=== PATIENT | female | born 1940 | race Caucasian/White ===

== ENCOUNTER 2016-11-10 12:25 | Emergency (ER) | payer MEDICARE, OTHER ==
[~2016-11-10] VITALS: Ht 165.1 cm; Wt 78.0 kg
[2016-11-10 12:25] VITALS: BP 103/56; PULSE 60; RESP 18; TEMP 98; O2SAT 95
[~2016-11-10 12:25] MED LIST: AMLO10 PO; ATOR20TA PO; CITA-48 PO; DONE5TAB14 PO; GABA100C4 PO; KEPP500T3 PO; MEMA28CA PO; TEMA15 PO
[2016-11-10] MEDS ORDERED: SODIUM CHLOR 0.9% 1000 ML INJ 1,000 ML IV ONE (12:45)
--- NOTE | 2016-11-10 12:49 | PD ---
HPI Chief Complaint: Syncope/Near-Syncope Time Seen by Provider: 12:32 Travel History International Travel<30 days: No Contact w/Intl Traveler<30days: No Traveled to known affect area: No History of Present Illness HPI 76-year-old female apparently had a syncopal episode today. sHe was reportedly sitting outside in the sun. She says she gets sweaty and felt hot. She was thirsty. She apparently had a syncopal episode which she is not entirely recall. Paramedics report that by the time they arrived at the scene that she was fully awake. Patient has a history of stroke and also of intracerebral hemorrhage. She denies cardiac history though her memory does not appear very reliable. She denies any chest pain or palpitations. She does have a history of seizures but she does not think she had a seizure today PFSH Past Medical History Arthritis: Yes Blood Disorders: Yes (blood clots) Cardiovascular Problems: No Cerebrovascular Accident: Yes Diminished Hearing: No Genitourinary: No Musculoskeletal: Yes Neurologic: Yes (hemorrhagic stroke 08/15) Reproductive: No Respiratory: Yes Myocardial Infarction: Yes PNEUMOCCOCAL Vaccine (Year): 2005 Menopausal: Yes Tubal Ligation: Yes Past Surgical History Appendectomy: Yes Cardiac Surgery: No Cholecystectomy: Yes Ear Surgery: No Eye Surgery: No Genitourinary Surgery: No Oral Surgery: No Thoracic Surgery: Yes Other Surgery: Yes Social History Alcohol Use: Yes (OCC) Tobacco Use: No Substance Use: No Allergies-Medications (Allergen,Severity, Reaction): Coded Allergies: No Known Allergies (Verified , 11/10/16) Reported Meds & Prescriptions Reported Meds & Active Scripts Active Reported Vitamin D-3 (Cholecalciferol) 1,000 Unit Cap 1 Cap PO DAILY Temazepam 30 Mg Cap 30 Mg PO HS PRN Namenda Xr (Memantine) 28 Mg Caper 28 Mg PO HS Lisinopril 20 Mg Tab 20 Mg PO DAILY Escitalopram (Escitalopram Oxalate) 10 Mg Tab 10 Mg PO DAILY Dilantin (Phenytoin Extended) 100 Mg Cap 300 Mg PO HS Review of Systems General / Constitutional: No: Fever, Chills Eyes: No: Diploplia HENT: No: Headaches Cardiovascular: Positive: Syncope, No: Chest Pain or Discomfort, Palpitations Respiratory: No: Cough, Shortness of Breath Gastrointestinal: No: Vomiting, Diarrhea Genitourinary: No: Urgency, Frequency Musculoskeletal: No: Myalgias, Arthralgias Skin: No Rash, No Itching Neurologic: No: Change in Mentation Psychiatric: No: Anxiety, Depression Hematologic/Lymphatic: No: Easy Bruising Physical Exam Narrative GENERAL: Well-developed female SKIN: Focused skin assessment warm/dry. HEAD: Atraumatic. Normocephalic. EYES: Pupils equal and round. No scleral icterus. No injection or drainage. ENT: No nasal bleeding or discharge. Mucous membranes pink and moist. NECK: Trachea midline. No JVD. CARDIOVASCULAR: Regular rate and rhythm. No murmur appreciated. RESPIRATORY: No accessory muscle use. Clear to auscultation. Breath sounds equal bilaterally. GASTROINTESTINAL: Abdomen soft, non-tender, nondistended. Hepatic and splenic margins not palpable. MUSCULOSKELETAL: No obvious deformities. No clubbing. No cyanosis. No edema. NEUROLOGICAL: Awake and alert. No obvious cranial nerve deficits. Motor grossly within normal limits. Patient appears to have some mild aphasia. She has some trouble finding certain words PSYCHIATRIC: Appropriate mood and affect; insight and judgment normal. Data Data Last Documented VS Vital Signs Date Time Temp Pulse Resp B/P Pulse Ox O2 Delivery O2 Flow Rate FiO2 11/10/16 12:50 65 18 107/56 96 Room Air 11/10/16 12:25 98.0 Orders Electrocardiogram (11/10/16 12:44) Complete Blood Count With Diff (11/10/16 12:44) Basic Metabolic Panel (Bmp) (11/10/16 12:44) Troponin I (11/10/16 12:44) Magnesium (Mg) (11/10/16 12:44) Ct Brain W/O Iv Contrast(Rout) (11/10/16 12:44) Sodium Chlor 0.9% 1000 Ml Inj (Ns 1000 M (11/10/16 12:45) Labs Laboratory Tests Test 11/10/16 13:00 White Blood Count 9.4 TH/MM3 Red Blood Count 4.26 MIL/MM3 Hemoglobin 13.7 GM/DL Hematocrit 39.5 % Mean Corpuscular Volume 92.8 FL Mean Corpuscular Hemoglobin 32.2 PG Mean Corpuscular Hemoglobin 34.7 % Concent Red Cell Distribution Width 12.2 % Platelet Count 186 TH/MM3 Mean Platelet Volume 8.6 FL Neutrophils (%) (Auto) 70.2 % Lymphocytes (%) (Auto) 19.4 % Monocytes (%) (Auto) 7.2 % Eosinophils (%) (Auto) 2.0 % Basophils (%) (Auto) 1.2 % Neutrophils # (Auto) 6.6 TH/MM3 Lymphocytes # (Auto) 1.8 TH/MM3 Monocytes # (Auto) 0.7 TH/MM3 Eosinophils # (Auto) 0.2 TH/MM3 Basophils # (Auto) 0.1 TH/MM3 CBC Comment DIFF FINAL Differential Comment Sodium Level 138 MEQ/L Potassium Level 3.9 MEQ/L Chloride Level 107 MEQ/L Carbon Dioxide Level 23.3 MEQ/L Anion Gap 8 MEQ/L Blood Urea Nitrogen 12 MG/DL Creatinine 0.55 MG/DL Estimat Glomerular Filtration 107 ML/MIN Rate Random Glucose 98 MG/DL Calcium Level 7.8 MG/DL Magnesium Level 2.0 MG/DL Troponin I 0.04 NG/ML [facility] Medical Decision Making Medical Screen Exam Complete: Yes Emergency Medical Condition: Yes Medical Record Reviewed: Yes Differential Diagnosis Differential includes dysrhythmia, dehydration, CVA Narrative Course EKG shows inverted T waves across the anterior leads. These abnormalities were present on her most recent EKG. A CT scan was done and is similar to previous CT scans. Lab work is unremarkable. Patient has been given some IV fluids. She says she feels well. I believe she had syncope due to being overheated some mild dehydration. She does not think she had a seizure. She is stable for discharge. Diagnosis Primary Impression: Syncope Qualified Code: T67.1XXA - Heat syncope, initial encounter Disposition: DISCHARGE HOME Condition: Stable Rizwan Negrete MD Nov 10, 2016 12:49
[2016-11-10 12:50] VITALS: BP 107/56; PULSE 65; RESP 18; O2SAT 96
[2016-11-10 13:16] LABS: AUTOMATED NEUTROPHIL # 6.6 TH/MM3 (1.8-7.7); BASOPHIL # 0.1 TH/MM3 (0-0.2); BASOPHIL % 1.2 % (0.0-2.0); EOSINOPHIL # 0.2 TH/MM3 (0-0.4); HEMATOCRIT 39.5 % (35.0-46.0); HEMO FLAGS DIFF FINAL; LYMPH % 19.4 % (9.0-44.0); LYMPHOCYTE # 1.8 TH/MM3 (1.0-4.8); MEAN CELL VOLUME 92.8 FL (80.0-100.0); MEAN CORPUSCULAR HEMOGLOBIN 32.2 PG (27.0-34.0); MEAN CORPUSCULAR HGB CONC 34.7 % (32.0-36.0); MONO % 7.2 % (0.0-8.0); NEUT % 70.2 % (16.0-70.0); PLATELET COUNT 186 TH/MM3 (150-450); RED BLOOD COUNT 4.26 MIL/MM3 (4.00-5.30); RED CELL DISTRIBUTION WIDTH 12.2 % (11.6-17.2); WHITE BLOOD COUNT 9.4 TH/MM3 (4.0-11.0)
[2016-11-10 13:25] LABS: POTASSIUM 3.9 MEQ/L (3.5-5.1)
[2016-11-10 13:29] LABS: BICARBONATE 23.3 MEQ/L (21.0-32.0)
[2016-11-10] MEDS ORDERED: LISI-515 PO (13:34)
[2016-11-10] MEDS ORDERED: DILA100C PO (13:34)
[2016-11-10] MEDS ORDERED: MEMA28CA PO (13:34)
[2016-11-10] MEDS ORDERED: CHOL1CAP6 PO (13:34)
[2016-11-10] MEDS ORDERED: TEMA30CA PO (13:34)
[2016-11-10] MEDS ORDERED: ESCI10TA PO (13:34)
--- NOTE | 2016-11-10 13:42 | RADRPT ---
EXAM DATE/TIME: 11/10/2016 13:10 [place] COMPARISON: CT BRAIN W/O CONTRAST, October 09, 2014, 11:27. INDICATIONS : Syncopal episode. RADIATION DOSE: 60.66 CTDIvol (mGy) MEDICAL HISTORY : Cardiovascular disease. Cerebrovascular disease. Intracerebral hemorrhage. SURGICAL HISTORY : Cholecystectomy. Appendectomy.Tubal ligation. ENCOUNTER: Initial ACUITY: 1 day PAIN SCALE: 0/10 LOCATION: cranial TECHNIQUE: Multiple contiguous axial images were obtained of the head. Using automated exposure control and adj ustment of the mA and/or kV according to patient size, radiation dose was kept as low as reasonably a chievable to obtain optimal diagnostic quality images. DICOM format image data is available electro nically for review and comparison. FINDINGS: CEREBRUM: The ventricles are normal for age. No evidence of midline shift, mass lesion, hemorrhage or acute in farction. No extra-axial fluid collections are seen. There is a stable old area of infarction involv ing the right are low. There is a stable old calcification noted within the area of infarction. No si gnificant change compared to the prior study from 2014. POSTERIOR FOSSA: The cerebellum and brainstem are intact. The 4th ventricle is midline. The cerebellopontine angle i s unremarkable. EXTRACRANIAL: The visualized portion of the orbits is intact. SKULL: The calvaria is intact. No evidence of skull fracture. No new or significant changes. CONCLUSION: 1. No focal or acute intracranial hemorrhage. 2. Stable old infarct involving the right frontal lobe. No change from 2014. Markus Wallace MD on November 10, 2016 at 13:38 Board Certified Radiologist. This report was verified electronically.
[2016-11-10 14:14] VITALS: BP 109/64
--- NOTE | 2016-11-11 15:15 | EKG ---
Date Performed: 11/10/2016 Time Performed: 12:29:35 PTAGE: 76 years EKG: Sinus rhythm Diffuse nonspecific ST-T wave change Borderline criteria for LVH Compared to previous tracing, T wav es are slightly more inverted anterolaterally, otherwise no signifcant change ABNORMAL ECG PREVIOUS TRACING : 10/08/2014 @ 1638 DOCTOR: Joel Joyce Interpretating Date/Time 11/11/2016 15:14:45
== END 2016-11-10 14:17 | disposition home or self-care (01) ==
LOC: PHED 12:25
DX: R55 Syncope and collapse (principal); I25.2 Old myocardial infarction; Z90.49 Acquired absence of other specified parts of digestive tract
CPT/HCPCS: 70450; 80048; 83735; 84484; 85025; 93005; 96360; 99285; J7030

== ENCOUNTER 2018-02-03 18:04 | Inpatient (IN) ==
--- NOTE | 2018-02-03 18:21 | ED ---
HPI General Chief Complaint: Syncope Stated Complaint: syncope Time Seen by Provider: 02/03/18 18:17 Source: patient and EMS Mode of arrival: EMS Limitations: no limitations History of Present Illness HPI narrative: 77-year-old female patient currently living in assisted care facility, presents to the ER today brought in by EMS because she had a syncopal episode at the dinner table, apparently she has no injuries. She was awake on scene and when EMS got her up to try to pivot her onto the stretcher, she had another near syncopal episode with bradycardia down to a rate of 49 bpm, blood pressure is down to the 80 systolic range. She was given a liter of IV fluids, atropine by EMS, and is now awake and alert. She denies any chest pains, shortness of breath, or other symptoms. She states that she just felt flushed and then she did not remember what happened. She denies any vomiting but has some nausea. She denies any diarrhea, black stools, blood in the stools, fevers , or other issues. Related Data Home Medications Medication Instructions Recorded Confirmed cholecalciferol (vitamin D3) 1,000 unit PO DAILY 02/03/18 02/03/18 [Vitamin D3] escitalopram oxalate 10 mg PO DAILY 02/03/18 02/03/18 lisinopril 20 mg PO DAILY 02/03/18 02/03/18 lorazepam 0.5 mg PO Q8H PRN 02/03/18 02/03/18 memantine 28 mg PO DAILY 02/03/18 02/03/18 mirtazapine 7.5 mg PO DAILY 02/03/18 02/03/18 phenytoin sodium extended 300 mg PO DAILY 02/03/18 02/03/18 phenytoin sodium extended 100 mg PO TID 02/03/18 02/03/18 [Dilantin Extended] quetiapine 25 mg PO DAILY 02/03/18 02/03/18 Allergies Allergy/AdvReac Type Severity Reaction Status Date / Time No Known Allergies Allergy Uncoded 11/10/16 12:45 Review of Systems ROS: all other systems reviewed are negative [facility] History Medical History Anxiety (Acute) Dementia (Acute) Depression (Acute) HTN (hypertension) (Acute) Seizures (Acute) High cholesterol (Acute) Social History Social History Substance History: No History of Abuse Smoking Status: Never smoker How Often Do You Have a Drink Containing Alcohol: 2 to 4 times a month Recent Travel in [facility] within the Last 8 Weeks: No Recent Out of Country Travel within the Last 8 Weeks: No Immunization History Tetanus Immunization: Unsure Exam Narrative Exam Narrative: GENERAL: Well-developed elderly female patient currently in mild distress. Awake and oriented x3. SKIN: Focused skin assessment warm/dry. HEAD: Atraumatic. Normocephalic. EYES: Pupils equal and round. No scleral icterus. No injection or drainage. ENT: No nasal bleeding or discharge. Mucous membranes pink and moist. NECK: Trachea midline. No JVD. CARDIOVASCULAR: Regular rate and rhythm. No murmur appreciated. RESPIRATORY: No accessory muscle use. Clear to auscultation. Breath sounds equal bilaterally. GASTROINTESTINAL: Abdomen soft, non-tender, nondistended. Hepatic and splenic margins not palpable. MUSCULOSKELETAL: No obvious deformities. No clubbing. No cyanosis. No edema. NEUROLOGICAL: Awake and alert. No obvious cranial nerve deficits. Motor grossly within normal limits. Normal speech. PSYCHIATRIC: Appropriate mood and affect; insight and judgment normal. Course Initial Documented Vital Signs Temperature 98.3 F 02/03/18 18:15 Pulse Rate 73 02/03/18 18:15 Respiratory Rate 22 02/03/18 18:15 Blood Pressure 127/60 02/03/18 18:15 Pulse Oximetry 97 02/03/18 18:15 Last Documented Vital Signs Temperature 98.3 F 02/03/18 18:15 Pulse Rate 73 02/03/18 18:15 Respiratory Rate 22 02/03/18 18:15 Blood Pressure 127/60 02/03/18 18:15 Pulse Oximetry 97 02/03/18 18:15 Sign Out Sign Out Data: Patient Sign Out occurred on 02/03/18 at 19:06. Patient's care was discussed, and care was transferred from Lima Cohen MD to Chriss Maldonado MD. Sign Out Comment: Case is signed out to Dr. Maldonado at 7 PM awaiting workup and disposition. Last updated by Lima Cohen MD at 02/03/18 18:48 Post-Handoff Eval: The patient was signed out to me by Dr. Cohen at change of shift. We are awaiting laboratory results. This is a 77-year-old female who presents after having 2 syncopal episodes. When paramedics arrived, they found her to be bradycardic and hypotensive. She was given atropine and IV fluids. When she arrived, her blood pressure and pulse were within normal limits. She has a history of seizure disorder. Her Dilantin level is 10 which is therapeutic. There is also questionable left lower lobe infiltrate on her chest x-ray. She is not febrile. Her white blood cell count is normal. Case was discussed with Dr. Lucas Coleman, [facility]. He agrees with the admission. She is on a medication that can cause bradycardia. He states he will address this and also address whether or not to start her on antibiotics. She has been given a second 500 cc bolus here in the emergency department. Medical Decision Making MDM Narrative Medical Screen Exam Complete: Yes Emergency Medical Condition: Yes Differential Diagnosis Differential Diagnosis: Dehydration versus dysrhythmias versus sepsis versus medication side effects Lab Data Result diagrams: 02/03/18 18:24 02/03/18 18:24 Lab Results 02/03/18 02/03/18 Range/Units 18:24 18:24 WBC 10.0 (4.0-11.0) th/mm3 RBC 4.90 (4.00-5.30) mil/mm3 Hgb 16.7 H (11.6-15.3) gm/dL Hct 46.0 (35.0-46.0) % MCV 93.8 (80.0-100.0) fL MCH 34.1 H (27.0-34.0) pg MCHC 36.4 H (32.0-36.0) % RDW 13.0 (11.6-17.2) % Plt Count 218 (150-450) th/mm3 MPV 9.1 (7.0-11.0) fL Prelim Diff (Auto) Slide review pending Neut % (Auto) 51.9 (16.0-70.0) % Lymph % (Auto) 31.0 (9.0-44.0) % [place] % (Auto) 8.2 H (0.0-8.0) % Eos % (Auto) 7.5 H (0.0-4.0) % Baso % (Auto) 1.4 (0.0-2.0) % Neut # (Auto) 5.2 (1.8-7.7) th/mm3 Lymph # (Auto) 3.1 (1.0-4.8) th/mm3 [place] # (Auto) 0.8 (0.0-0.9) th/mm3 Eos # (Auto) 0.7 H (0.0-0.4) th/mm3 Baso # (Auto) 0.1 (0.0-0.2) th/mm3 WBC Differential . Diff Scan Auto diff confirmed Differential Comment . Platelet Estimate Normal (Normal) Platelet Morphology Normal (Normal) Spherocytes 1+ H (None) Ovalocytes 1+ H (None) Sodium 139 (136-145) meq/L Potassium 3.7 (3.5-5.1) meq/L Chloride 102 (98-107) meq/L Carbon Dioxide 29.9 (21.0-32.0) meq/L Anion Gap 7 (5-15) meq/L BUN 11 (7-18) mg/dL Creatinine 0.73 (0.50-1.00) mg/dL Estimated GFR 77 L (>89) mL/min Random Glucose 99 (74-106) mg/dL Calcium 8.5 (8.5-10.1) mg/dL Total Bilirubin 0.4 (0.2-1.0) mg/dL AST 24 (15-37) U/L ALT 24 (10-53) U/L Alkaline Phosphatase 331 H (45-117) U/L Lactate Dehydrogenase 255 H (84-246) U/L Troponin I 0.03 (0.02-0.05) ng/mL Total Protein 8.4 H (6.4-8.2) g/dL Albumin 3.8 (3.4-5.0) g/dL Phenytoin 10.0 (10.0-20.0) mcg/mL Imaging Data Radiologist's impression: Head CT 02/03/18 18:17 CONCLUSION: 1. No acute intracranial abnormality demonstrated. 2. 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 . Chest X-Ray 02/03/18 18:18 CONCLUSION: Mild left base consolidation. Discharge Plan Discharge Disposition Patient Disposition: 30 Still Patient Discharge Details Diagnosis: Syncope, Hypotension, Bradycardia, Seizure disorder Physicians Team ED Provider: Chriss Maldonado Primary Care Provider: Hola Mas Attending Provider: Lucas Coleman Status ED Status: Admitted Patient
--- NOTE | 2018-02-03 18:46 | XR ---
EXAM DATE: 02/03/2018 6:32 PM EDT AGE/SEX: 77 years / Female INDICATIONS: Palpations. Syncope. CLINICAL DATA: This is the patient's initial encounter. Patient reports that signs and symptoms have been present for 1 day and indicates a pain score of 0/10. MEDICAL/SURGICAL HISTORY: . Cardiovascular disease. Cerebrovascular disease. Intracerebral hemo rrhage. . Cholecystectomy. Appendectomy.Tubal ligation. COMPARISON: [facility], CHEST SINGLE AP, 08/07/2014. . FINDINGS: There is mild consolidation at the left lung base. Right lung appears clear. No pleural effusion or p neumothorax demonstrated. Heart size stable, within normal limits. CONCLUSION: Mild left base consolidation. Electronically signed by: Kofi Greene MD 02/03/2018 6:45 PM EDT
[2018-02-03 18:47] LABS: Baso # (Auto) 0.1 th/mm3 (0.0-0.2); Baso % (Auto) 1.4 % (0.0-2.0); Eos # (Auto) 0.7 th/mm3 (0.0-0.4); Eos % (Auto) 7.5 % (0.0-4.0); Hemoglobin 16.7 gm/dL (11.6-15.3); Lymph # (Auto) 3.1 th/mm3 (1.0-4.8); Mean Corpuscular Hemoglobin 34.1 pg (27.0-34.0); Mean Corpuscular Volume 93.8 fL (80.0-100.0); Mean Platelet Volume 9.1 fL (7.0-11.0); Mono # (Auto) 0.8 th/mm3 (0.0-0.9); Mono % (Auto) 8.2 % (0.0-8.0); Neut # (Auto) 5.2 th/mm3 (1.8-7.7); Neut % (Auto) 51.9 % (16.0-70.0); Platelet Count 218 th/mm3 (150-450)
[2018-02-03 18:50] LABS: Mean Corpuscular HGB Conc 36.4 % (32.0-36.0)
[2018-02-03 19:14] LABS: Ovalocytes 1+; Platelet Estimate Normal (Normal); Platelet Morphology Normal (Normal); Spherocytes 1+
[2018-02-03 19:23] LABS: Alanine Aminotransferase 24 U/L (10-53); Albumin 3.8 g/dL (3.4-5.0); Anion Gap 7 meq/L (5-15); Aspartate Aminotransferase 24 U/L (15-37); Blood Urea Nitrogen 11 mg/dL (7-18); Calcium 8.5 mg/dL (8.5-10.1); Carbon Dioxide 29.9 meq/L (21.0-32.0); Chloride 102 meq/L (98-107); Glomerular Filtration Rate 77 mL/min (>89); Glucose,Random 99 mg/dL (74-106); Potassium 3.7 meq/L (3.5-5.1); Sodium 139 meq/L (136-145)
[2018-02-03 19:27] LABS: Alkaline Phosphatase 331 U/L (45-117); Lactate Dehydrogenase 255 U/L (84-246); Total Protein 8.4 g/dL (6.4-8.2); Troponin I 0.03 ng/mL (0.02-0.05)
--- NOTE | 2018-02-03 19:36 | CT ---
EXAM DATE: 02/03/2018 7:10 PM EDT AGE/SEX: 77 years / Female INDICATIONS: Syncope. CLINICAL DATA: This is the patient's initial encounter. Patient reports that signs and symptoms have been present for 1 day and indicates a pain score of 0/10. MEDICAL/SURGICAL HISTORY: Hypertension. Dementia. Seizures. None. RADIATION DOSE: 56.80 CTDI (mGy) COMPARISON: [facility], CT BRAIN W/O CONTRAST, 11/10/2016. . TECHNIQUE: CT of the head without contrast. Using automated exposure control and adjustment of the mA and/or kV according to patient size, radiation dose was kept as low as reasonably achievable to ob tain optimal diagnostic quality images. DICOM format image data is available electronically for revi ew and comparison. FINDINGS: There is no intracranial hemorrhage or hematoma. No mass, mass effect or midline shift demonstrated. No evidence of an acute ischemic event. Chronic low-attenuation seen in the periventricular white mat ter and there is focal, old encephalomalacia of the right frontal lobe. Bone window images show an intact skull. Visualized paranasal sinuses and mastoid air cells are clear . CONCLUSION: 1. No acute intracranial abnormality demonstrated. 2. 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 . Electronically signed by: Kofi Greene MD 02/03/2018 7:35 PM EDT
[2018-02-03] MEDS ORDERED: Sodium Chlor 0.9% Inj 500 ML IV.SIG SCH (20:00)
[2018-02-03] MEDS ORDERED: Bisacodyl 10 MG Supp RECTAL PRN (20:11)
--- NOTE | 2018-02-03 21:48 | P.HPIM ---
History of Present Illness Primary Care Physician: Hola Mas MD History of Present Illness: 69-year-old female with a history of hypertension, seizures, dementia on Namenda who presents following syncopal episode around 5 PM. Patient was sitting down to have dinner, began to feel hot and then passed out. She regained consciousness, however had another syncopal episode while EMS was transporting her, heart rate found to be in the 40s, and received atropine with improvement. No loss of bowel or bladder function reported by patient. Patient denies any chest pain, shortness of breath, nausea vomiting. Patient says she felt fine prior to this syncopal episode, and feels fine now. Denies any changes in medication regimen recently. Patient has a history of dementia however is alert and oriented x4. Inpatient Certification: I certify that the inpatient services were ordered in accordance with Medicare regulations governing the order. This includes certification that hospital inpatient services are reasonable and necessary and in the case of services not specified as inpatient-only under 42 CFR 419.22(n), that they are appropriately provided as inpatient services in accordance to with the 2-midnight benchmark under 43 CFR 412.3(e) Estimated Total Length of Stay (Days): 2 Plans for Post Hospital Care: Not yet determined Review of Systems All other systems reviewed negative except as stated in HPI PMFSH - History History Provided By: Patient, Sane Rn / EMT - Medical History Medical History: Medical History (Last Updated 02/03/18 @ 21:44 by Lucas Coleman MD) Anxiety Dementia Depression HTN (hypertension) Seizures Stroke High cholesterol - Surgical History Surgical History: Surgical History (Last Updated 02/03/18 @ 21:43 by Lucas Coleman MD) H/O vein stripping Hx of cholecystectomy - Family History Family History: Family History (Last Updated 02/03/18 @ 21:43 by Lucas Coleman MD) Father Cancer Mother Stroke - Tobacco History Smoking Status: Never smoker - Alcohol History How Often Do You Have a Drink Containing Alcohol: 2 to 4 times a month - Substance Use History Substance History: No History of Abuse - Travel History Recent Travel in the [place] Within the Last 8 Weeks: No Recent Travel Out of the Country Within the Last 8 Weeks: No - Immunization History Tetanus Immunization: Unsure Medications and Allergies Active Medications: Active Medications Al Hydroxide/Mg Hydroxide (Milk Of Magnesia Liq) 30 ml PO Q12H PRN PRN Reason: Mild Constipation Bisacodyl (Dulcolax Supp) 10 mg RECTAL DAILY PRN PRN Reason: SEVERE CONSITIPATION Escitalopram Oxalate (Lexapro) 10 mg PO DAILY [facility] Sodium Chloride (Ns Inj) 1,000 mls @ 50 mls/hr IV.CONT .Q20H EL Lactulose (Lactulose Liq) 30 ml PO DAILY PRN PRN Reason: SEVERE CONSITIPATION Phenytoin Sodium (Dilantin) 100 mg PO TID [facility] Quetiapine Fumarate (Seroquel) 25 mg PO DAILY [facility] Sennosides (Senokot) 17.2 mg PO Q12H PRN PRN Reason: Moderate Constipation Vitamin D (Vitamin D3) 1,000 unit PO DAILY [facility] Allergies Allergy/AdvReac Type Severity Reaction Status Date / Time No Known Allergies Allergy Uncoded 11/10/16 12:45 Home Medications Medication Instructions Recorded Confirmed Type cholecalciferol (vitamin D3) 1,000 unit PO DAILY 02/03/18 02/03/18 History [Vitamin D3] escitalopram oxalate 10 mg PO DAILY 02/03/18 02/03/18 History lisinopril 20 mg PO DAILY 02/03/18 02/03/18 History lorazepam 0.5 mg PO Q8H PRN 02/03/18 02/03/18 History memantine 28 mg PO DAILY 02/03/18 02/03/18 History mirtazapine 7.5 mg PO DAILY 02/03/18 02/03/18 History phenytoin sodium extended 300 mg PO DAILY 02/03/18 02/03/18 History phenytoin sodium extended 100 mg PO TID 02/03/18 02/03/18 History [Dilantin Extended] quetiapine 25 mg PO DAILY 02/03/18 02/03/18 History Exam Vital signs: Vital Signs 02/03/18 18:15 02/03/18 20:43 Temperature 98.3 F Pulse Rate 73 73 Respiratory Rate 22 20 Blood Pressure 127/60 122/57 L Pulse Oximetry 97 98 Intake & Output 02/03/18 02/03/18 02/04/18 06:59 18:59 05:59 Intake Total 500 / 500 Balance 500 / 500 Weight 77.111 kg Intake: IV 500 / 500 NS Inj 500 ML @ 1000 mls/hr IV. 500 / 500 SIG BOLUS [facility] Rx#:[id number] Narrative: GENERAL: Patient sitting up in bed. Appears comfortable. Alert and oriented x4. SKIN: Warm and dry. HEAD: Atraumatic. Normocephalic. EYES: Pupils equal and round. No scleral icterus. No injection or drainage. ENT: No nasal bleeding or discharge. Mucous membranes pink and moist. NECK: Trachea midline. No JVD. CARDIOVASCULAR: Regular rate and rhythm. RESPIRATORY: No accessory muscle use. Clear to auscultation. Breath sounds equal bilaterally. GASTROINTESTINAL: Abdomen soft, non-tender, nondistended. Hepatic and splenic margins not palpable. MUSCULOSKELETAL: Extremities without clubbing, cyanosis, or edema. No obvious deformities. NEUROLOGICAL: Awake and alert. No obvious cranial nerve deficits. Motor grossly within normal limits. Five out of 5 muscle strength in the arms and legs. Normal speech. PSYCHIATRIC: Appropriate mood and affect; insight and judgment normal. Results - Labs CBC & Chem 7: 02/03/18 18:24 02/03/18 18:24 Labs: Short CBC 02/03/18 Range/Units 18:24 WBC 10.0 (4.0-11.0) th/mm3 Hgb 16.7 H (11.6-15.3) gm/dL Hct 46.0 (35.0-46.0) % Plt Count 218 (150-450) th/mm3 BMP 02/03/18 18:24 Sodium 139 Potassium 3.7 Chloride 102 Carbon Dioxide 29.9 BUN 11 Creatinine 0.73 Calcium 8.5 Cardiac Enzymes 02/03/18 02/03/18 Range/Units 18:24 20:30 Troponin I 0.03 0.03 (0.02-0.05) ng/mL Liver Function 02/03/18 Range/Units 18:24 Total Bilirubin 0.4 (0.2-1.0) mg/dL AST 24 (15-37) U/L ALT 24 (10-53) U/L Alkaline Phosphatase 331 H (45-117) U/L Albumin 3.8 (3.4-5.0) g/dL - Imaging Impressions Head CT 02/03/18 18:17 CONCLUSION: 1. No acute intracranial abnormality demonstrated. 2. 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 . Chest X-Ray 02/03/18 18:18 CONCLUSION: Mild left base consolidation. Caprini VTE Risk Assessment Caprini VTE Risk Assessment: Moderate/High Risk (score >= 2) Caprini Risk Assessment Model: Point Value = 1 Point Value = 2 Point Value = 3 Point Value = 5 Age 41-60 Minor surgery BMI > 25 kg/m2 Swollen legs Varicose veins or History of unexplained or recurrent spontaneous Oral contraceptives or hormone replacement Sepsis (< 1 month) Serious lung disease, including pneumonia (< 1 month) Abnormal pulmonary function Acute myocardial infarction Congestive heart failure (< 1 month) History of inflammatory bowel disease Medical patient at bed rest Age 61-74 Arthroscopic surgery Major open surgery (> 45 min) Laparoscopic surgery (> 45 min) Malignancy Confined to bed (> 72 hours) Immobilizing plaster cast Central venous access Age >= 75 History of VTE Family history of VTE Factor V Leiden Prothrombin [id number] Lupus anticoagulant Anticardiolipin antibodies Elevated serum homocysteine Heparin-induced thrombocytopenia Other congenital or acquired thrombophilia Stroke (< 1 month) Elective arthroplasty Hip, pelvis, or leg fracture Acute spinal cord injury (< 1 month) Prophylaxis Regimen: Total Risk Factor Score Risk Level Prophylaxis Regimen 0-1 Low Early ambulation 2 Moderate Order ONE of the following: *Sequential Compression Device (SCD) *Heparin 5000 units SQ BID 3-4 Higher Order ONE of the following medications: *Heparin 5000 units SQ TID *Enoxaparin/Lovenox 40 mg SQ daily (WT < 150 kg, CrCl > 30 mL/min) *Enoxaparin/Lovenox 30 mg SQ daily (WT < 150 kg, CrCl > 10-29 mL/min) *Enoxaparin/Lovenox 30 mg SQ BID (WT < 150 kg, CrCl > 30 mL/min) AND/OR *Sequential Compression Device (SCD) 5 or more Highest Order ONE of the following medications: *Heparin 5000 units SQ TID (Preferred with Epidurals) *Enoxaparin/Lovenox 40 mg SQ daily (WT < 150 kg, CrCl > 30 mL/min) *Enoxaparin/Lovenox 30 mg SQ daily (WT < 150 kg, CrCl > 10-29 mL/min) *Enoxaparin/Lovenox 30 mg SQ BID (WT < 150 kg, CrCl > 30 mL/min) AND *Sequential Compression Device (SCD) Assessment and Plan - Plan //Acute syncopal episode secondary to bradycardia //Cardiac syncope Improved with atropine at the scene. Heart rate in the 50s on examination here We will keep on telemetry overnight. Hold memantine. Consult cardiology. //Chest x-ray with questionable left lower lobe infiltrate. No positive findings on exam. No signs of infection. Continue to monitor. //History of dementia Due to bradycardia, hold dementia medications. Continue quetiapine //History of depression Continue mirtazapine. //History of seizures. Does not appear to have been seizure episode due to bradycardia. No postictal state. Phenytoin level within normal limits. Continue phenytoin. Discussed Condition With: Patient, nurse, ED physician.
[2018-02-03] MEDS: Sod Chloride 0.9% Inj 1,000 ML IV.CONT SCH (23:16)
[2018-02-03 23:21] LABS: Bacteria,Urine Moderate /hpf; Bilirubin,Urine Negative (Negative); Clarity,Urine Hazy (Clear); Color,Urine Yellow (Yellw/Straw); Glucose,Urine (UA) Negative (Negative); Hyaline Casts,Urine 58 /lpf (0-3); Leukocyte Esterase,Urine Trace (Negative); Mucus,Urine Few /lpf (Occasional); Nitrite,Urine Negative (Negative); Specific Gravity,Urine 1.008 (1.002-1.035); Squamous Epithelial Cell,Urine 2 /hpf (0-5)
[2018-02-04 02:16] LABS: Baso # (Auto) 0.1 th/mm3 (0.0-0.2); Baso % (Auto) 1.1 % (0.0-2.0); Eos # (Auto) 0.5 th/mm3 (0.0-0.4); Eos % (Auto) 4.5 % (0.0-4.0); Hematocrit 43.1 % (35.0-46.0); Lymph # (Auto) 3.4 th/mm3 (1.0-4.8); Lymph % (Auto) 29.5 % (9.0-44.0); Mean Corpuscular HGB Conc 34.7 % (32.0-36.0); Mean Corpuscular Volume 94.9 fL (80.0-100.0); Mean Platelet Volume 9.2 fL (7.0-11.0); Mono # (Auto) 0.9 th/mm3 (0.0-0.9); Mono % (Auto) 8.1 % (0.0-8.0); Neut # (Auto) 6.6 th/mm3 (1.8-7.7); Neut % (Auto) 56.8 % (16.0-70.0); Platelet Count 206 th/mm3 (150-450); Red Blood Count 4.54 mil/mm3 (4.00-5.30); Red Cell Distribution Width 13.1 % (11.6-17.2); White Blood Count 11.6 th/mm3 (4.0-11.0)
[2018-02-04 03:04] LABS: Alanine Aminotransferase 22 U/L (10-53); Albumin 3.3 g/dL (3.4-5.0); Anion Gap 5 meq/L (5-15); Aspartate Aminotransferase 33 U/L (15-37); Blood Urea Nitrogen 9 mg/dL (7-18); Calcium 8.1 mg/dL (8.5-10.1); Carbon Dioxide 30.7 meq/L (21.0-32.0); Chloride 105 meq/L (98-107); Glomerular Filtration Rate Greater Than 89 mL/min (>89); Glucose,Random 92 mg/dL (74-106); Potassium 3.7 meq/L (3.5-5.1); Sodium 141 meq/L (136-145)
[2018-02-04 03:07] LABS: Alkaline Phosphatase 296 U/L (45-117); Total Protein 7.3 g/dL (6.4-8.2)
[2018-02-04] MEDS: Escitalopram 10 MG Tablet PO SCH (09:55)
[2018-02-04] MEDS: Mirtazapine 15 MG Tablet PO SCH (09:55)
[2018-02-04] MEDS: QUEtiapine 25 MG Tablet PO SCH (09:55)
[2018-02-04] MEDS: Phenytoin Sodium 100 MG Capsule PO SCH ×3 (09:55→18:36)
--- NOTE | 2018-02-04 10:48 | P.PNIM ---
Subjective Interval history: Patient currently does not have any complaints. No chest pain, no palpitations. She says she is anxious about why she passed out yesterday. Physical Exam Vital signs: Vital Signs 02/03/18 18:15 02/03/18 20:43 02/03/18 23:17 Temperature 98.3 F 98 F Pulse Rate 73 73 48 L Respiratory Rate 22 20 20 Blood Pressure 127/60 122/57 L 89/55 L Pulse Oximetry 97 98 92 L 02/04/18 00:00 02/04/18 01:00 EDT 02/04/18 01:00 EST Temperature Pulse Rate 48 L 50 L 50 L Respiratory Rate Blood Pressure Pulse Oximetry 02/04/18 02:00 02/04/18 03:00 02/04/18 04:00 Temperature 97.8 F Pulse Rate 51 L 49 L 52 L Respiratory Rate 20 Blood Pressure 107/56 L Pulse Oximetry 96 02/04/18 05:00 02/04/18 06:00 Temperature Pulse Rate 50 L 49 L Respiratory Rate Blood Pressure Pulse Oximetry Intake & Output 02/03/18 02/04/18 02/04/18 19:59 06:59 18:59 Intake Total Output Total Balance Weight Intake: IV NS Inj 500 ML @ 1000 mls/hr IV. SIG BOLUS EL Rx#:[id number] Oral Output: Urine Other: # Bowel Movements Narrative: General patient in no acute distress HEENT extraocular movements are intact, clear oropharyngeal mucosa, no JVD Cardiovascular S1-S2 audible, bradycardic Respiratory clear to auscultation bilaterally Abdomen soft, nontender, nondistended, normal bowel sounds Extremities no edema 2+ distal pulses in bilateral upper and lower extremities Neuro cranial nerves II through XII intact Results - Labs CBC & Chem 7: 02/04/18 01:46 EST 02/04/18 01:46 EST Laboratory Results - last 24 hr 02/03/18 02/03/18 02/03/18 18:24 18:24 19:00 WBC 10.0 RBC 4.90 Hgb 16.7 H Hct 46.0 MCV 93.8 MCH 34.1 H MCHC 36.4 H RDW 13.0 Plt Count 218 MPV 9.1 Prelim Diff (Auto) Slide review pending Neut % (Auto) 51.9 Lymph % (Auto) 31.0 [place] % (Auto) 8.2 H Eos % (Auto) 7.5 H Baso % (Auto) 1.4 Neut # (Auto) 5.2 Lymph # (Auto) 3.1 Fergus # (Auto) 0.8 Eos # (Auto) 0.7 H Baso # (Auto) 0.1 WBC Differential . Diff Scan Auto diff confirmed Differential Comment . Platelet Estimate Normal Platelet Morphology Normal Spherocytes 1+ H Ovalocytes 1+ H Sodium 139 Potassium 3.7 Chloride 102 Carbon Dioxide 29.9 Anion Gap 7 BUN 11 Creatinine 0.73 Estimated GFR 77 L Random Glucose 99 Calcium 8.5 Total Bilirubin 0.4 AST 24 ALT 24 Alkaline Phosphatase 331 H Lactate Dehydrogenase 255 H Troponin I 0.03 Total Protein 8.4 H Albumin 3.8 Urine Color Yellow Urine Clarity Hazy H Urine pH 6.0 Ur Specific [place] 1.008 Urine Protein Negative Urine Glucose (UA) Negative Urine Ketones Negative Urine Occult Blood Negative Urine Nitrate Negative Urine Bilirubin Negative Urine Urobilinogen Less than 2 Ur Leukocyte Esterase Trace H Urine RBC 1 Urine WBC 4 Ur Squamous Epith Cells 2 Urine Bacteria Moderate H Hyaline Casts 58 Granular Casts 9 Urine Mucus Few H Urine Yeast Rare H Micro UA Comment Cath-culture ind Ur Microscopic Review Not Reportable Urine Culture Comments Cath-cult indicated Phenytoin 10.0 02/03/18 02/04/18 02/04/18 20:30 01:46 EST 01:46 EST WBC 11.6 H RBC 4.54 Hgb 15.0 Hct 43.1 MCV 94.9 MCH 33.0 MCHC 34.7 RDW 13.1 Plt Count 206 MPV 9.2 Prelim Diff (Auto) Neut % (Auto) 56.8 Lymph % (Auto) 29.5 [place] % (Auto) 8.1 H Eos % (Auto) 4.5 H Baso % (Auto) 1.1 Neut # (Auto) 6.6 Lymph # (Auto) 3.4 [place] # (Auto) 0.9 Eos # (Auto) 0.5 H Baso # (Auto) 0.1 WBC Differential . Diff Scan Differential Comment Auto diff final Platelet Estimate Platelet Morphology Spherocytes Ovalocytes Sodium Potassium Chloride Carbon Dioxide Anion Gap BUN Creatinine Estimated GFR Random Glucose Calcium Total Bilirubin AST ALT Alkaline Phosphatase Lactate Dehydrogenase Troponin I 0.03 0.04 Total Protein Albumin Urine Color Urine Clarity Urine pH Ur Specific [place] Urine Protein Urine Glucose (UA) Urine Ketones Urine Occult Blood Urine Nitrate Urine Bilirubin Urine Urobilinogen Ur Leukocyte Esterase Urine RBC Urine WBC Ur Squamous Epith Cells Urine Bacteria Hyaline Casts Granular Casts Urine Mucus Urine Yeast Micro UA Comment Ur Microscopic Review Urine Culture Comments Phenytoin 02/04/18 01:46 EST WBC RBC Hgb Hct MCV MCH MCHC RDW Plt Count MPV Prelim Diff (Auto) Neut % (Auto) Lymph % (Auto) [place] % (Auto) Eos % (Auto) Baso % (Auto) Neut # (Auto) Lymph # (Auto) [place] # (Auto) Eos # (Auto) Baso # (Auto) WBC Differential Diff Scan Differential Comment Platelet Estimate Platelet Morphology Spherocytes Ovalocytes Sodium 141 Potassium 3.7 Chloride 105 Carbon Dioxide 30.7 Anion Gap 5 BUN 9 Creatinine 0.62 Estimated GFR Greater than 89 Random Glucose 92 Calcium 8.1 L Total Bilirubin 0.5 AST 33 ALT 22 Alkaline Phosphatase 296 H Lactate Dehydrogenase Troponin I Total Protein 7.3 D Albumin 3.3 L Urine Color Urine Clarity Urine pH Ur Specific [place] Urine Protein Urine Glucose (UA) Urine Ketones Urine Occult Blood Urine Nitrate Urine Bilirubin Urine Urobilinogen Ur Leukocyte Esterase Urine RBC Urine WBC Ur Squamous Epith Cells Urine Bacteria Hyaline Casts Granular Casts Urine Mucus Urine Yeast Micro UA Comment Ur Microscopic Review Urine Culture Comments Phenytoin - Imaging Impressions Head CT 02/03/18 18:17 CONCLUSION: 1. No acute intracranial abnormality demonstrated. 2. 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 . Chest X-Ray 02/03/18 18:18 CONCLUSION: Mild left base consolidation. Assessment and Plan - Plan This patient is a 77-year-old female with a diagnosis of hypertension, seizure disorder, dementia on Namenda. The patient presented after a syncopal episode around 5 PM. She was sitting to have dinner and began to feel hot and then passed out. No seizure-like activity noted. As per documentation while EMS was transporting her heart rate was found to be in the 40s and she received atropine with improvement of heart rate. 1. Syncope likely secondary to bradycardia. Patient has been asymptomatic since she has been inside the hospital. Continue to monitor on telemetry. EKG shows normal sinus rhythm with slight T wave inversions in the anterior and lateral leads. Cardiology consulted to evaluate the patient. A cardiac stress test has been ordered. We will follow-up the results of the stress test. 2. Seizure disorder Continue phenytoin. Levels checked within normal limits. 3. Hypertension Blood pressure stable. We will continue monitor the patient blood pressure. If needed antihypertensives will be started. SCDs for DVT prophylaxis.
--- NOTE | 2018-02-04 11:55 | MB ---
cc: Nicolas Le MD DATE: 02/04/2018 REASON FOR CONSULTATION: Syncope, bradycardia and abnormal EKG. HISTORY OF PRESENT ILLNESS: The patient is a very pleasant 77-year-old woman who denies any cardiac history, but says she did have a couple of stroke several years ago, but she is pretty vague on the details. She denies any cardiac problems and she has never been worked up for a cardiac diagnosis, according to her. The patient was sitting with her roommates yesterday when she began feeling hot and flushed and apparently blacked out and the next thing she knew she was in the ambulance. While being monitored, she has had generally slow heart rates in the 40s and 50s and one 10-beat borderline wide complex episode overnight, though the speed was not terribly fast and looked most consistent with an aberrantly conducted atrial arrhythmia, though nonsustained ventricular tachycardia is also possible. Currently, she is asymptomatic, denying any chest pain, shortness of breath, lightheadedness, dizziness. PAST MEDICAL HISTORY: CVA, anxiety, dementia, depression, seizures. CURRENT MEDICATIONS: 1. Lexapro. 2. Remeron. 3. Dilantin. 4. Seroquel. ALLERGIES: NO KNOWN DRUG ALLERGIES. PHYSICAL EXAMINATION: VITAL SIGNS: Afebrile, pulse 49, respiratory rate 20, BP 107/56, saturating 96. GENERAL: A very pleasant woman in no distress. NECK: No JVD. LUNGS: Clear to auscultation bilaterally. CARDIOVASCULAR: Regular rate and rhythm. No murmurs appreciated. ABDOMEN: Benign. EXTREMITIES: No edema. LABORATORY DATA: White count 11.6, hematocrit 43.1, platelets 206. Sodium 141, potassium 3.7, chloride 105, bicarbonate 30.7, BUN 9, creatinine 0.62, glucose 92. Troponins are negative. EKG shows sinus rhythm with anterior T-wave inversions and borderline prolonged QT interval. IMPRESSION: Syncope. The patient had an episode of seated syncope certainly concerning for arrhythmia, though apparently she does have a seizure history as well. Her EKG is abnormal. I will have her undergo a nuclear stress test to rule out ischemia. I will also plan on an echocardiogram and inserting a loop recorder tomorrow morning for long-term arrhythmia monitoring. Given her QT interval is slightly longer, I would ask the primary medical service to reevaluate her psychiatric medications to attempt to reduce her QT interval, though, at the moment, I do not think it is related to her current presentation. Further recommendations based on the above studies. Thank you again for the opportunity to participate in the patient's care. MD SAMANTHA Richardson/ra , 09:26 AM , 09:33 AM
[2018-02-04] MEDS ORDERED: Regadenoson Inj 0.4 MG/5 ML Syringe IV.PUSH ONE (12:08)
--- NOTE | 2018-02-04 14:24 | NM ---
EXAM DATE: 02/04/2018 2:03 PM EST AGE/SEX: 77 years / Female INDICATIONS:Abnormal EKG. . Syncopal episode and bradycardia. CLINICAL DATA: This is the patient's initial encounter. Patient reports that signs and symptoms have been present for 1 day and indicates a pain score of 0/10. MEDICAL/SURGICAL HISTORY: Hypercholesterolemia. Hypertension. Seizures. Stroke. Cholecystec dez. COMPARISON: No prior exams available for comparison. DOSE: 8.4 mCi Tc 99m Myoview at rest 26.1 mCi [id number] at stress 0.4 mg Lexiscan STRESS SYMPTOMS: None noted. EJECTION FRACTION: > 70 % TECHNIQUE: The patient underwent pharmacologic stress with infusion of prescribed dose. Continuous ECG tracing was monitored during stress. Gated SPECT imaging was performed after stress and conventi onal SPECT imaging was performed at rest. The examination was performed on a SPECT/CT scanner, both attenuation and non-corrected datasets were reviewed. FINDINGS: Distribution: The maximum perfused segment at stress is in the anterior wall. Perfusion Study: The pattern of perfusion at stress is within normal limits. Gated Study: There are intact wall motion and wall thickening without hypokinetic or dyskinetic segm ents. The ejection fraction is calculated at > 70%. RISK CATEGORY: Low (<1% Annual Motality Rate) CONCLUSION: Negative examination. Electronically signed by: Lonny Archer MD 02/04/2018 2:22 PM EST
[2018-02-04] MEDS ORDERED: Sodium Chloride 0.9% 2 ML Flush PRN IV.FLUSH (17:43)
[2018-02-04] MEDS: Sod Chloride 0.9% Inj 1,000 ML IV.CONT SCH (17:50)
[2018-02-04] MEDS: Sodium Chloride 0.9% 2 ML Flush BID IV.FLUSH SCH (20:13)
--- NOTE | 2018-02-04 22:40 | ECG ---
Date Performed: 02/04/2018 Time Performed: 05:57:18 PTAGE: 77 years EKG: Sinus bradycardia Prolonged QT interval Possible left ventricular hypertrophy Extensive ST- T changes may be due to hypertrophy and/or ischemia Abnormal ECG PREVIOUS TRACING : 02/03/2018 20.32 Since the previous tracing, no significant change noted DOCTOR: Torito Welch Interpretating Date/Time 02/04/2018 22:39:03
--- NOTE | 2018-02-04 23:03 | ECG ---
Date Performed: 02/03/2018 Time Performed: 20:32:58 PTAGE: 77 years EKG: Sinus rhythm ST DEVIATION AND MODERATE T-WAVE ABNORMALITY, CONSIDER ANTEROLATERAL ISCHEMIA ABNORMAL ECG PREVIOUS TRACING : 11/10/2016 12.29 Since the previous tracing, no significant change noted DOCTOR: Torito Welch Interpretating Date/Time 02/04/2018 23:03:23
[2018-02-05] MEDS: QUEtiapine 25 MG Tablet PO SCH (08:00)
[2018-02-05] MEDS: Mirtazapine 15 MG Tablet PO SCH (08:00)
[2018-02-05] MEDS: Escitalopram 10 MG Tablet PO SCH (08:00)
[2018-02-05] MEDS: Phenytoin Sodium 100 MG Capsule PO SCH ×2 (08:00→13:54)
[2018-02-05] MEDS: Sodium Chloride 0.9% 2 ML Flush BID IV.FLUSH SCH (08:01)
[2018-02-05] MEDS ORDERED: fentaNYL Citrate Inj 100 MCG/2 ML Ampul ONE (08:16)
[2018-02-05] MEDS ORDERED: Mupirocin 2% Nasal Oint Topical Syringe EACH NARE SCH (08:30)
[2018-02-05] MEDS ORDERED: Chlorhexidine Gluconate 2% 1 Pack (2 Cloths) TOPICAL SCH (08:30)
[2018-02-05] MEDS ORDERED: ceFAZolin 2 GM Premix Inj 2 GM/50 ML PIGGYBACK IV.SIG SCH (09:00)
--- NOTE | 2018-02-05 09:06 | P.PN ---
Subjective Interval history: Pt w/o complaints, did well during loop insertion Physical Exam Vital signs: Vital Signs 02/04/18 10:00 02/04/18 14:00 02/04/18 15:00 Temperature Pulse Rate 62 58 L 62 Respiratory Rate Blood Pressure Pulse Oximetry 02/04/18 16:00 02/04/18 17:00 02/04/18 18:00 Temperature 98.2 F Pulse Rate 58 L 58 L 53 L Respiratory Rate 18 Blood Pressure 130/71 Pulse Oximetry 94 L 02/04/18 19:00 02/04/18 20:00 02/04/18 21:00 Temperature 98 F Pulse Rate 58 L 59 L 57 L Respiratory Rate 18 Blood Pressure 134/78 Pulse Oximetry 94 L 02/04/18 22:00 02/04/18 23:00 02/05/18 00:00 Temperature 98.4 F Pulse Rate 59 L 54 L 51 L Respiratory Rate 18 Blood Pressure 143/69 H Pulse Oximetry 95 02/05/18 01:00 02/05/18 02:00 02/05/18 03:00 Temperature Pulse Rate 57 L 55 L 57 L Respiratory Rate Blood Pressure Pulse Oximetry 02/05/18 04:00 02/05/18 05:00 02/05/18 06:00 Temperature 98.2 F Pulse Rate 59 L 58 L 59 L Respiratory Rate 20 Blood Pressure 136/72 Pulse Oximetry 96 Intake & Output 02/04/18 02/05/18 02/05/18 18:59 06:59 18:59 Intake Total 1140 / 1140 288 / 288 Output Total 1150 / 1150 850 / 850 Balance -10 / -10 -562 / -562 Weight 77 kg Intake: IV 400 / 400 NS Inj 1,000 ML @ 50 mls/hr IV. 400 / 400 CONT .Q20H EL Rx#:[id number] Oral 740 / 740 288 / 288 Output: Urine 1150 / 1150 850 / 850 Other: Date of Last Bowel Movement 02/04/18 # Bowel Movements 1 1 - Constitutional no acute distress - Routine HEENT Exam Head: Present: normocephalic Eye: Present: EOMI ENT: Present: mucous membranes moist - Routine Neck Exam Absent: JVD - Routine Respiratory Exam Present: CTA bilaterally. Absent: accessory muscle use - Routine Cardiovascular Exam Present: RRR, bradycardia - Routine Abdominal Exam Present: guarding Results - Labs CBC & Chem 7: 02/04/18 01:46 EST 02/04/18 01:46 EST Microbiology 02/03/18 19:00 Catheterized Urine Urine Culture - Final >100,000 cfu/mL mixed saturnino (probable contaminants) - Imaging Impressions Myocardial Perfusion Scan Nuc Med 02/04/18 00:00 CONCLUSION: Negative examination. Assessment and Plan - Assessment (1) Syncope Code(s): R55 - Syncope and collapse Status: Acute Plan: Unclear etiology but seated so arrhythmia a concern, now s/p loop placement (2) Abnormal EKG Code(s): R94.31 - Abnormal electrocardiogram [ECG] [EKG] Status: Acute (3) Abnormal EKG Code(s): R94.31 - Abnormal electrocardiogram [ECG] [EKG] Status: Acute Plan: Now s/p non-ischemic nuclear stress. - Plan Pt doesn't drive; ok to d/c home from a cardiac standpoint, she should f/u with me in 1-2 weeks. (1) Syncope Qualifiers: Syncope type: unspecified Qualified Code(s): R55 - Syncope and collapse
--- NOTE | 2018-02-05 09:23 | MR ---
cc: Nicolas Le MD DATE: 02/05/2018 PROCEDURE PERFORMED: Loop recorder insertion. DESCRIPTION OF PROCEDURE: After informed consent was obtained and under anesthesia's guidance, a transesophageal echocardiogram was performed (please see separate report). Following this exam, a [employer] LINQ loop recorder was inserted subcutaneously in the left chest. The patient tolerated the procedure well without any apparent complications. Tachybrady pause and atrial fibrillation detection was enabled. Initial R-wave was 0.62 millivolts. The serial number was [id number]. MD SAMANTHA Richardson/zakia , 08:46 AM , 08:54 AM
--- NOTE | 2018-02-05 11:19 | MA ---
cc: Nicolas Le MD DATE: 02/05/2018 INDICATIONS: Syncope. PROCEDURES PERFORMED: 1. Fifteen minutes of moderate IV sedation. 2. Loop recorder insertion. DESCRIPTION OF PROCEDURE: The patient was brought to the DOC Unit in the postabsorptive state. After informed consent was obtained, 2 mg of Versed and 25 mcg of fentanyl was given for moderate sedation. Next, a [employer] LINQ loop recorder was inserted subcutaneously to the left chest. The patient tolerated the procedure well without any apparent complications. Tachybrady pause and atrial fibrillation detection was enabled. The initial R-wave was 0.44 millivolts. The serial number was [id number]. Nicolas Le MD SAMANTHA/mary lou , 09:08 AM , 09:11 AM
--- NOTE | 2018-02-05 12:02 | P.DS ---
Date of admission: 02/03/18 20:11 Primary care physician: Hola Mas MD Brief History from admission: 69-year-old female with a history of hypertension, seizures, dementia on Namenda who presents following syncopal episode around 5 PM. Patient was sitting down to have dinner, began to feel hot and then passed out. The patient was found to have a heart rate in the 40s and was given atropine and her heart rate responded appropriately. DS: Summary Hospital Course: This patient is a 77-year-old female with a diagnosis of hypertension, seizure disorder, dementia. Patient presented to our facility after a syncopal episode around 5 PM while she was sitting having dinner. No seizure-like activity noted. Her heart rate was found to be in the 40s as per EMS report. The patient was given atropine and her heart rate improved. 1. Syncope likely secondary to bradycardia As mentioned above the patient presented with a syncopal episode. An EKG was done which shows normal sinus rhythm as well as a slight T inversion in anterior and lateral leads. QTC was slightly elevated at 482. Cardiology was consulted to evaluate the patient and a cardiac stress test was done. Cardiac stress test was negative. The plan from cardiology was to place a loop recorder. The patient underwent loop recorder placement and tolerated the procedure well. She should follow-up with her primary care physician as well as her psychiatrist outpatient 1 week after discharge. Although the patient's syncopal episode is likely not from QTC prolongation her psychiatric medications should be adjusted as she is on a few medications that could prolong her QTC. Cardiology recommends following up with him in the next 1-2 weeks after discharge. If the patient has an episode of dizziness, palpitations, or another syncopal episode she should seek immediate medical attention and her loop recorder can be interrogated. Her heart rate throughout the hospitalization has mostly been around 50-60s. 2. Seizure disorder Patient did not have any symptoms of a seizure when she arrived to our facility. This is unlikely the cause of her syncopal episode. Continue phenytoin 3. Hypertension Patient was taking lisinopril prior to arrival at our facility. Her blood pressure has been stable without the medication while in house. Lisinopril will be stopped as her blood pressure is currently in the low 130s. She should continue to have her blood pressure monitored and her antihypertensive medication can be adjusted as needed. Patient will be discharged back to the assisted living facility today. She says she uses a front wheel walker at the assisted living facility and she should continue to use that to avoid falls. - Time Spent with Patient Total time spent providing and/or coordinating discharge services: Greater than 30 minutes - Quality: VTE Deep Vein Thrombosis/Pulmonary Embolism Present on Admission: No Exam Vital signs: Vital Signs 02/04/18 14:00 02/04/18 15:00 02/04/18 16:00 Temperature 98.2 F Pulse Rate 58 L 62 58 L Respiratory Rate 18 Blood Pressure 130/71 Pulse Oximetry 94 L 02/04/18 17:00 02/04/18 18:00 02/04/18 19:00 Temperature Pulse Rate 58 L 53 L 58 L Respiratory Rate Blood Pressure Pulse Oximetry 02/04/18 20:00 02/04/18 21:00 02/04/18 22:00 Temperature 98 F Pulse Rate 59 L 57 L 59 L Respiratory Rate 18 Blood Pressure 134/78 Pulse Oximetry 94 L 02/04/18 23:00 02/05/18 00:00 02/05/18 01:00 Temperature 98.4 F Pulse Rate 54 L 51 L 57 L Respiratory Rate 18 Blood Pressure 143/69 H Pulse Oximetry 95 02/05/18 02:00 02/05/18 03:00 02/05/18 04:00 Temperature 98.2 F Pulse Rate 55 L 57 L 59 L Respiratory Rate 20 Blood Pressure 136/72 Pulse Oximetry 96 02/05/18 05:00 02/05/18 06:00 02/05/18 07:00 Temperature Pulse Rate 58 L 59 L 63 Respiratory Rate Blood Pressure Pulse Oximetry 02/05/18 08:00 Temperature 98.2 F Pulse Rate 59 L Respiratory Rate 18 Blood Pressure 134/71 Pulse Oximetry 94 L Intake & Output 02/04/18 02/05/18 02/05/18 18:59 06:59 18:59 Intake Total 1140 / 1140 288 / 288 Output Total 1150 / 1150 850 / 850 Balance -10 / 10 -562 / -562 Weight 77 kg Intake: IV 400 / 400 NS Inj 1,000 ML @ 50 mls/hr IV. 400 / 400 CONT .Q20H [facility] Rx#:[id number] Oral 740 / 740 288 / 288 Output: Urine 1150 / 1150 850 / 850 Other: Date of Last Bowel Movement 02/04/18 # Bowel Movements 1 1 Narrative: General patient in no acute distress HEENT extraocular movements are intact, clear oropharyngeal mucosa, no JVD Cardiovascular S1-S2 audible, RRR, no murmurs rubs or gallops Respiratory clear to auscultation bilaterally Abdomen soft, nontender, nondistended, normal bowel sounds Extremities no edema 2+ distal pulses in bilateral upper and lower extremities Neuro cranial nerves II through XII intact Results Procedures completed during hospitalization: Loop recorder placement Cardiac stress test - Impressions ITS Impressions Head CT 02/03/18 18:17 CONCLUSION: 1. No acute intracranial abnormality demonstrated. 2. 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 . Chest X-Ray 02/03/18 18:18 CONCLUSION: Mild left base consolidation. Myocardial Perfusion Scan Nuc Med 02/04/18 00:00 CONCLUSION: Negative examination. Discharge Plan - Discharge Disposition Patient Disposition: 04 [facility] - Discharge Condition Condition: Good - Discharge Order Discharge Orders: Discharge Order (Routine); Ordered 02/05/18 Ordered By: Axel Jolley - Physicians Team Primary Care Provider: Hola Mas Attending Provider: Axel Jolley Other Providers: Nicolas Le MD
--- NOTE | 2018-02-05 14:32 | ECHRPT ---
Indication: SYNCOPE CONCLUSIONS Normal left ventricular size. Wall thickness is normal. The left ventricular systolic function is normal with an estimated ejection fraction in the range of 55-60%. Aortic valve sclerosis is present. There is trace tricuspid valve regurgitation. The estimated pulmonary arterial pressure is 17 mmHg. BP: / HR: Rhythm: MEASUREMENTS (Male / Female) Normal Values Technical Quality: 2D ECHO LV Diastolic Diameter PLAX 4.3 cm 4.2 - 5.9 / 3.9 - 5.3 cm LV Systolic Diameter PLAX 3.4 cm IVS Diastolic Thickness 1.4 cm 0.6 - 1.0 / 0.6 - 0.9 cm LVPW Diastolic Thickness 0.8 cm 0.6 - 1.0 / 0.6 - 0.9 cm LV Relative Wall Thickness 0.5 RV Internal Dim ED PLAX 1.8 cm LVOT Diameter 2.0 cm Aortic Root Diameter 2.9 cm LA Systolic Diameter LX 3.6 cm 3.0 - 4.0 / 2.7 - 3.8 cm DOPPLER Mitral E Point Velocity 48.9 cm/s Mitral A Point Velocity 81.9 cm/s Mitral E to A Ratio 0.6 TR Peak Velocity 205.0 cm/s TR Peak Gradient 16.8 mmHg PV Peak Velocity 99.7 cm/s PV Peak Gradient 4.0 mmHg FINDINGS LEFT VENTRICLE Normal left ventricular size. Wall thickness is normal. The left ventricular systolic function is normal with an estimated ejection fraction in the range of 55-60%. RIGHT VENTRICLE Normal right ventricular size and systolic function. LEFT ATRIUM The left atrial size is normal. RIGHT ATRIUM The right atrial size is normal. ATRIAL SEPTUM Normal atrial septal thickness without atrial level shunting by limited color doppler interrogation. AORTA The aortic root and proximal ascending aorta are normal in size on limited imaging. MITRAL VALVE Structurally normal mitral valve. No mitral valve stenosis or regurgitation. AORTIC VALVE Aortic valve sclerosis is present. TRICUSPID VALVE There is trace tricuspid valve regurgitation. The estimated pulmonary arterial pressure is 17 mmHg. PULMONARY VALVE The pulmonary valve is not well visualized. VESSELS The inferior vena cava is normal in size. PERICARDIUM No pericardial effusion. Don Santillan MD, FACC, [facility] (Electronically Signed) Final Date:05 February 2018 14:31
== END 2018-02-05 16:12 ==
LOC: NEPC 18:04 → NEDA 20:11 → HCIS 21:39
PROVIDERS: ADMIT Hospitalist; ATTEND Hospitalist